=== PATIENT | female | born 2000 | race Two or more races ===

== ENCOUNTER 2023-02-15 10:53 | Emergency (ER) | payer MEDICAID ==
[~2023-02-15] VITALS: Ht 167.6 cm; Wt 90.8 kg
[2023-02-15 11:37] LABS: Basophils # (auto) 0 10 ^3/uL (0-0.2); Basophils % (auto) 0.5 % (0.0-2.0); Eosinophils # (auto) 0 10 ^3/uL (0-0.8); Eosinophils % (auto) 0.1 % (0.0-7.0); Hematocrit 41.8 % (36.0-46.0); Hemoglobin 13.8 g/dL (12.2-16.2); Lymphocytes # (auto) 1.3 10 ^3/uL (0.4-5.4); Lymphocytes % (auto) 14.9 % (10.0-50.0); Mean Corpuscular Hemoglobin 29.2 pg (28.0-32.0); Mean Corpuscular Hgb Conc. 32.9 g/dL (32.0-36.0); Mean Corpuscular Volume 88.6 fL (80.0-100.0); Monocytes # (auto) 0.2 10 ^3/uL (0-1.3); Monocytes % (auto) 2.9 % (0.0-12.0); Neutrophils % (auto) 81.6 % (37.0-80.0); Red Blood Cells 4.72 10^6/uL (4.0-5.20); Red Cell Distribution Width 13.4 % (11.8-14.3); White Blood Cell 8.5 10^3/uL (4.4-10.8)
[2023-02-15] MEDS ORDERED: KETOROLAC TROMETH 30 MG/ML 1ML VIAL IM ONE (11:45)
[2023-02-15] MEDS ORDERED: ONDANSETRON ODT 4 MG TAB PO ONE (11:45)
[2023-02-15 11:55] LABS: Albumin 4.3 g/dL (3.4-5.0); Anion Gap 6 (5-15); Blood Urea Nitrogen 7 mg/dL (7-18); Calcium 9.1 mg/dL (8.5-10.1); Carbon Dioxide 20 mmol/L (21-32); Chloride 109 mmol/L (98-107); Glucose 114 mg/dL (74-106); Potassium 4.1 mmol/L (3.5-5.1); Sodium 135 mmol/L (136-145)
[2023-02-15 11:57] LABS: BUN/Creatinine Ratio 12.1 (10.0-20.0); GFR African American 169 mL/min; GFR Non-African American 139 mL/min
[2023-02-15 12:03] LABS: Alanine Aminotransferase 17 U/L (13-56); Alkaline Phosphatase 59 U/L (45-117); Total Protein 8.8 g/dL (6.4-8.2)
[2023-02-15 12:25] LABS: Urine Bacteria NONE SEEN /hpf (None Seen); Urine Blood 3+ /uL (Negative); Urine Specific Gravity 1.011 (1.001-1.035); Urine WBC 7 /hpf (0 - 5)
[2023-02-15 13:00] LABS: Aspartate Aminotransferase 12 U/L (15-37)
[2023-02-15] MEDS ORDERED: PRED20TA2 PO (13:43)
[2023-02-15 14:05] VITALS: BP 155/91
== END 2023-02-15 14:06 | disposition home or self-care (01) ==
LOC: ER 10:53
DX: R51.9 Headache, unspecified (principal); I10 Essential (primary) hypertension; Z32.02 Encounter for pregnancy test, result negative
CPT/HCPCS: 36415; 80053; 81001; 81025; 85025; 96372; 99283; J1885; Q0162